=== PATIENT | female | born 1970 | race Caucasian/White ===

== ENCOUNTER → 2019-03-15 | Outpatient (CLI) | payer OTHER | LOC: RAD 03-13 10:07 → CAT 13:01 | DX: M51.37 Other intervertebral disc degeneration, lumbosacral region (principal); M48.061 Spinal stenosis, lumbar region without neurogenic claudication; M48.07 Spinal stenosis, lumbosacral region ==

== ENCOUNTER → 2019-10-30 | Outpatient (CLI) | payer OTHER ==
[~2019-10-30] MED LIST: ALBUTEROL2.5 MG/31 INH; AMITRIPTYLINE H25 M4 PO; ASA81BEC PO; AZELASTINE137 MCG/0. EA. EAR; CATAPRES0.1 MG PO; HYDROXYZINE HCL50 MG PO; LANTUS SUBQ; LEFLUNOMIDE 1010 MG PO; LOPRESSOR25 PO; NARCAN4 MG NARES; OZEMPIC1 MG/0.75 SUBQ; PANTOPRAZOLE SO40 M1 PO; PLAQUENIL200 MG PO; PLAVIX 75 MG TA75 MG PO; PROAIR HFA8.5 GM INH; ROXICODONE30 MG PO; SINGULAIR 10 MG10 M1 PO; TRELEGY ELLIPT1 EACH INH; ZETIA10 MG PO
== END ==
LOC: LAB 08:00
PROVIDERS: ATTEND Preventive Medicine Occupational Medicine
DX: Z01.812 Encounter for preprocedural laboratory examination (principal); Z20.828 Contact with and (suspected) exposure to other viral communicable diseases

== ENCOUNTER 2020-01-17 12:12 | Day surgery (SDC) | payer OTHER ==
[~2020-01-17] VITALS: Ht 175.3 cm; Wt 102.5 kg
[~2020-01-17 12:12] MED LIST changes: +METOPROLOL TART25 MG PO; +PROTONIX40 M4 PO
[2020-01-17 13:19] VITALS: BP 111/74
== END 2020-01-17 16:05 | disposition home or self-care (01) ==
LOC: OR 12:12 → TBA 12:15 → EDSTATUS 13:22 → OR 14:26
PROVIDERS: ATTEND Preventive Medicine Occupational Medicine
DX: T85.11 Breakdown (mechanical) of implanted electronic stimulator of nervous system (principal); M48.061 Spinal stenosis, lumbar region without neurogenic claudication; M47.816 Spondylosis without myelopathy or radiculopathy, lumbar region; M54.16 Radiculopathy, lumbar region; G89.4 Chronic pain syndrome; I10 Essential (primary) hypertension; E11.9 Type 2 diabetes mellitus without complications; E78.5 Hyperlipidemia, unspecified; J43.9 Emphysema, unspecified; F32.9 Major depressive disorder, single episode, unspecified; F41.9 Anxiety disorder, unspecified; K21.9 Gastro-esophageal reflux disease without esophagitis; M06.9 Rheumatoid arthritis, unspecified; F17.210 Nicotine dependence, cigarettes, uncomplicated; Z98.890 Other specified postprocedural states; Z79.899 Other long term (current) drug therapy; Z79.4 Long term (current) use of insulin; Z96.642 Presence of left artificial hip joint; Z98.51 Tubal ligation status; Z88.8 Allergy status to other drugs, medicaments and biological substances; Y83.8 Other surgical procedures as the cause of abnormal reaction of the patient, or of later complication, without mention of misadventure at the time of the procedure
CPT/HCPCS: 50010; 50101; 50386; 50417; 56524; 56526; 57196; 57197; 57198; 57199; 57200; 57201; 57430; 62110; 62900; 70005